=== PATIENT | female | born 1990 | race Caucasian/White ===

== ENCOUNTER 2019-06-02 11:16 | Day surgery (SDC) | payer BC ==
[2019-06-02 11:59] VITALS: BMI 40.1
[2019-06-02 12:38] LABS: #Basophils 0.1 thou/uL (0.0-0.2); #Eosinphils 0.1 thou/uL (0.0-0.7); #Lymphocytes 1.8 thou/uL (1.20-3.40); #Monocytes 0.7 thou/uL (0.11-0.59); #Neutrophils 9.2 thou/uL (1.40-6.50); %Basophils 0.4 % (0.0-1.0); %Lymphocytes 14.8 % (21.0-51.0); %Monocytes 6.2 % (0.0-10.0); %Neutrophils 77.5 % (42.0-75.0); Hemoglobin 12.4 g/dL (12.0-16.0); Mean Corpuscular HGB CONC 34.5 g/dL (32.0-36.0); Mean Corpuscular Hemoglobin 28.6 pg (27.0-31.0); Mean Corpuscular Volume 82.9 fL (78.0-98.0); Mean Platelet Volume 8.4 fL (7.4-10.4); Platelet Count 210 thou/uL (130-400); RBC Distribution Width 13.4 % (11.5-14.5); Red Blood Cell (RBC) Count 4.32 mill/uL (4.20-5.40); White Blood Cell (WBC) Count 11.9 thou/uL (4.8-10.8)
[2019-06-02 12:56] LABS: Bacteria/HPF None Seen HPF (None Seen); Bilirubin Negative (Negative); Blood, Urine Trace (Negative); Clarity Clear (Clear); Glucose, Urine (Dipstick) Normal (Negative); Leukocyte Negative Leu/uL (Negative); Nitrite Negative (Negative); Protein, Urine (Dipstick) Negative (Neg-Trace); RBC/HPF 0-3 HPF (0-3); Squamous Epithelial 0-3 HPF (0-3); Urobilinogen Normal mg/dL (Less than 2); WBC/HPF 0-3 HPF (0-3)
[2019-06-02 13:05] LABS: ALT (SGPT) 14 U/L (8-55); AST (SGOT) 14 U/L (5-34); Albumin 3.3 g/dL (3.5-5.0); Alkaline Phosphatase 143 U/L (40-110); Anion Gap 14 mmol/L (10-20); BUN (Urea Nitrogen) 8 mg/dL (7.0-18.7); Bilirubin, Total 0.2 mg/dL (0.2-1.2); Calc. Creatinine Clearance 211 mL/min (70-130); Calcium 9.4 mg/dL (7.8-10.44); Carbon Dioxide 21 mmol/L (22-29); Chloride 106 mmol/L (98-107); Estimated GFR-MDRD Greater than 90; Glucose 74 mg/dL (70-105); Potassium 4.4 mmol/L (3.5-5.1); Protein, Total 6.3 g/dL (6.0-8.3); Sodium 137 mmol/L (136-145); Uric Acid 4.2 mg/dL (2.6-6.0)
[2019-06-02 13:47] LABS: Protein, Urine Random Quant Less than 10 mg/dL (1-14)
== END 2019-06-02 15:07 | disposition home health service (06) ==
LOC: L&D/OP 11:16
PROVIDERS: ATTEND Obstetrics & Gynecology
DX: O48.0 Post-term pregnancy (principal); Z3A.40 40 weeks gestation of pregnancy; Z88.0 Allergy status to penicillin
CPT/HCPCS: 36415; 80053; 81001; 82570; 84156; 84550; 85025; 99283

== ENCOUNTER 2019-06-03 12:06 | Inpatient (IN) | payer BC ==
[2019-06-03 12:55] VITALS: BMI 40.7
[2019-06-03] MEDS ORDERED: hydrALAZINE 20 MG/ML VIAL SLOW IVP PRN ×2 (13:10→17:18)
[2019-06-03 13:55] LABS: Amnisure Internal Control QC ACCEPTABLE (ACCEPTABLE); Amnisure Test No Membranes Rupture (No Rupture)
--- NOTE | 2019-06-03 14:08 | PRG ---
DATE OF SERVICE: 06/03/2019 PRIMARY OBSTETRIC: . 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 CHIEF COMPLAINT: Fall and leakage of fluid. HISTORY OF PRESENT ILLNESS: The patient is a 28-year-old G1, P0 female with an intrauterine at 40 weeks and 4 days, presenting to Labor and Delivery after falling onto her bottom after slipping on a step. She fell straight down and hit the step. She denies any abdominal trauma or any injury. She reports, at that time, she felt like she had a little bit of leaking of fluid that has not persisted and is not sure for water broke. The patient reports that she is feeling her contractions a little bit. She was seen by Ms. Zuniga yesterday, at which time, her membranes were swept and was reported to be about 2 to 2.5 cm dilated. The patient reports having had intercourse this morning, walking yesterday, and has castor oil at home, all in an attempt to try to put herself in the labor. The patient denies any fever, headache, chest pain, shortness of breath, nausea, or vomiting. She has some loose stools. Denies constipation. Denies any new rashes, hip problems, knee problems, muscle weakness. Denies vaginal bleeding. Denies urinary urgency or frequency. PAST MEDICAL HISTORY: Negative. PAST SURGICAL HISTORY: She had wisdom teeth removed. SOCIAL HISTORY: She reports alcohol use before the . Denies drug or tobacco use. ALLERGIES: PENICILLIN, CODEINE, AND LATEX. MEDICATIONS: vitamins. OBSTETRIC LABORATORY DATA: Blood type is A positive. She is GBS negative. She is rubella immune. Hepatitis B surface antigen nonreactive. RPR nonreactive in the first trimester. Antibody screen is negative. She is group B strep positive. REVIEW OF SYSTEMS: Per HPI. PHYSICAL EXAMINATION: VITAL SIGNS: Blood pressure 129/85, heart rate of 77, respiratory rate of 16, temperature 98.9. GENERAL: She appears to be in no acute distress. She is alert, oriented, cooperative, and pleasant to interact with. HEAD: Normocephalic, atraumatic. LUNGS: Clear to auscultation bilaterally. HEART: Regular rate and rhythm. ABDOMEN: Gravid, soft, nontender. EXTREMITIES: Nontender, nonedematous. CERVICAL: Per nursing staff, is 4, 75, -2 station. heart tracing is showing a possibly baseline in the 150s with [id number] long-term variability and positive 15 x 15 accelerations. ASSESSMENT AND PLAN: The patient is a 28-year-old G1, P0 female with an intrauterine at 40 weeks and 4 days, presenting after a fall onto her bottom. There is no obvious evidence of trauma to her belly or abruption. At this time, fetus does have high baseline with some [id number] variability and prolonged accelerations into the 170s. We will be monitoring the baby to better establish a long-term pattern. It appears that baseline may be coming down into the 150s, but we will continue to monitor. She has no evidence of labor right now, though she is beginning to feel contractions. We have an AmniSure test pending. Clinically, it does not sound like she has rupture of membranes. We will reassess here in a couple of hours with all the information and another cervical check. Hopefully, by then, the heart tracing will be more clear. Job ID: [id number]
[2019-06-03] MEDS ORDERED: Ibuprofen 800 MG TAB PO PRN (17:18)
[2019-06-03] MEDS ORDERED: Ondansetron PF 4 MG/2 ML Vial IVP PRN (17:18)
[2019-06-03] MEDS ORDERED: HYDROcodone/Acetaminophen 5/325 mg Tablet PO PRN ×2 (17:18)
[2019-06-03] MEDS ORDERED: Promethazine HCl 25 MG/ML VIAL IM PRN (17:18)
[2019-06-03] MEDS ORDERED: NS / Oxytocin 40 units/1000ml 1,000 ML IV PRN (17:18)
[2019-06-03] MEDS ORDERED: Lidocaine 1% (PF) 30 ML VIAL SC PRN (17:18)
[2019-06-03] MEDS ORDERED: Methylergonovine 0.2 MG/ML VIAL IM PRN (17:18)
[2019-06-03] MEDS ORDERED: Misoprostol 200 MCG TAB PR PRN (17:18)
[2019-06-03] MEDS ORDERED: NS w/ Oxytocin 10 units 500 ML IV SCH (17:30)
[2019-06-03] MEDS: Lactated Ringer's 1,000 ML IV SCH (17:40)
[2019-06-03 18:06] LABS: Hemoglobin 12.4 g/dL (12.0-16.0); Mean Corpuscular HGB CONC 33.8 g/dL (32.0-36.0); Mean Corpuscular Hemoglobin 28.3 pg (27.0-31.0); Mean Corpuscular Volume 83.6 fL (78.0-98.0); Mean Platelet Volume 8.2 fL (7.4-10.4); Platelet Count 205 thou/uL (130-400); RBC Distribution Width 13.3 % (11.5-14.5); Red Blood Cell (RBC) Count 4.37 mill/uL (4.20-5.40); White Blood Cell (WBC) Count 12.8 thou/uL (4.8-10.8)
[2019-06-03 18:55] LABS: HBSAg Index 0.22 S/CO (0-0.99); Hep B Surf Ag Non-Reactive S/CO (NonReactive); Syphilis Antibody Nonreactive (Nonreactive); Syphilis Antibody Index 0.07 S/CO (<1.00 Non-Reactive)
[2019-06-04] MEDS: CEFAZOLIN 2 GM in Premix Bag 1 BAG IVPB SCH ×2 (01:05→09:02)
[2019-06-04] MEDS: Lactated Ringer's 1,000 ML IV SCH ×2 (01:55→14:54)
[2019-06-04] MEDS ORDERED: Fentanyl 4 mcg/Bup 0.1% Cadd 100 ML ONE (03:58)
[2019-06-04] MEDS ORDERED: Ondansetron PF 4 MG/2 ML Vial IVP PRN (04:35)
[2019-06-04] MEDS ORDERED: Naloxone HCl 0.4 mg/ml Vial IVP PRN ×2 (04:35)
[2019-06-04] MEDS ORDERED: diphenhydrAMINE 50 MG/ML VIAL IVP PRN (04:35)
[2019-06-04] MEDS ORDERED: Lactated Ringer's 500 ML IV PRN (04:35)
[2019-06-04] MEDS ORDERED: Promethazine HCl 25 MG/ML VIAL IM PRN (04:35)
[2019-06-04] MEDS ORDERED: Acetaminophen 325 MG TAB PO PRN (04:35)
[2019-06-04] MEDS ORDERED: ePHEDrine/0.9% NaCl/PF SYRINGE 50 mg/10 ml SLOW IVP PRN (04:35)
[2019-06-04] MEDS ORDERED: Communication Order-Pharmacy FS SCH (04:45)
[2019-06-04] MEDS ORDERED: Fentanyl 4 mcg/Bupivacaine 0.1% Cassette 100 ML EPIDURAL SCH (04:45)
[2019-06-04] MEDS ORDERED: Misoprostol 200 MCG TAB ONE (11:43)
--- NOTE | 2019-06-04 13:13 | PDOC.LDHP ---
Labor and Delivery H&P Chief complaint: contractions, other (fall) HPI: Patient slipped down two stairs and fell on her bottom. She has been observed here in L&D for several hours. She thought her water broke, but it was determined it was not. She is worried about going home, she is worried about baby passing away or something else bad happening. since she is 4cm she would like to stay for an IOL of labor Current gestational age (weeks): 40 (4 days) Dating criteria: last menstrual period Grav: 1 Para: 0 OB History Details: 05/30/19 Current complications: other (GBS+) Current medications: pre- vitamins Previous surgical history: other (wisdom teeth) Allergies/Adverse Reactions: Allergies Allergy/AdvReac Type Severity Reaction Status Date / Time Penicillins Allergy Unknown Rash Verified 06/02/19 13:13 Social history: none - Physical Exam Vital signs reviewed and normal: yes General: breathing through contractions Heart: RRR Lungs: nonlabored breathing Abdomen: gravid Extremeties: trace edema FHT: category 1 - Vaginal Exam cm dilated: 4 Effacement: 75% Station: -2 - OB Labs Blood type: A RH: positive Antibody Screen: negative HIV: negative RPR: negative HEPSAg: negative 1 hour GCT: negative GBS: positive Urine drug screen: negative Rubella: immune - Assessment L&D Assessment: term patient in labor - Plan Plan: admit to L&D, labor augmentation if indicated, GBS antibiotic prophylaxis
--- NOTE | 2019-06-04 13:24 | PDOC.OPDEL ---
OB Operative/Delivery Note Delivery Dr/Surgeon: Catalina Tidwell Pre-Delivery Diagnosis: active labor, other (40 week 4 days) Anesthesia: epidural - Findings A Sex: female Weight: 8 lb 9 oz - 1 min: 9 - 5 min: 10 - Additional Findings/Plan Placenta delivered: spontaneous Repaired Obstetrical Laceration: 2nd degree Estimated blood loss: 1260 QBL Compilations/Other Findings: PPH, resolved with cytotec 800mcg MT, methergine 0.25 IM, and Pitocin small piece of retained placenta which was manually removed Post delivery plan: routine recovery
[2019-06-04] MEDS ORDERED: HYDROcodone/Acetaminophen 5/325 mg Tablet PO PRN ×2 (14:49)
[2019-06-04] MEDS ORDERED: Milk Of Magnesia 30 ML UDCUP PO PRN (14:49)
[2019-06-04] MEDS ORDERED: NS / Oxytocin 40 units/1000ml 1,000 ML IV SCH (14:49)
[2019-06-04] MEDS ORDERED: Bisacodyl 10 MG SUPP PR PRN (14:49)
[2019-06-04] MEDS ORDERED: Methylergonovine 0.2 MG/ML VIAL IM PRN (14:49)
[2019-06-04] MEDS ORDERED: Adacel (T-DAP) 0.5 ML SYRINGE IM ONE (14:49)
[2019-06-04] MEDS ORDERED: hydrALAZINE 20 MG/ML VIAL SLOW IVP PRN (14:49)
[2019-06-04] MEDS ORDERED: Benzocaine-Menthol 82.5 ML CAN TOP PRN (14:49)
[2019-06-04] MEDS: Ibuprofen 800 MG TAB PO SCH (15:21)
[2019-06-04] MEDS: Ferrous Sulfate 325 MG TAB PO SCH (17:10)
[2019-06-05] MEDS: Ibuprofen 800 MG TAB PO SCH ×4 (00:52→23:38)
[2019-06-05] MEDS: Docusate Calcium (SURFAK) 240 MG CAP PO SCH ×3 (00:52→21:25)
--- NOTE | 2019-06-05 05:50 | PDOC.PP ---
Post Progress Note Post Day #: PPD1 Subjective: Resting, no complaints PO intake tolerated: yes Flatus: yes Ambulation: yes Vital Signs (12 hours) Temp Pulse Resp BP Pulse Ox 06/05/19 04:50 98.6 F 74 18 118/65 06/05/19 00:45 98.6 F 97 18 112/63 06/04/19 20:25 98.2 F 78 18 118/58 L 97 Weight Weight 104.326 kg - Physical Examination General: NAD Respiratory: non-labored breathing Abdominal: no distention Neurological: no gross focal deficits Psychiatric: normal affect Result Diagrams: 06/03/19 17:57 Additional Labs: Post Labs Blood Type A POSITIVE 06/03/19 18:17 Hep Bs Antigen Non-Reactive S/CO (NonReactive) 06/03/19 17:57 - Assessment/Plan Doing well s/p , bleeding resolved post Cytotec after delivery. Check CBC this AM. Anticipate home in AM.
[2019-06-05 08:34] LABS: #Eosinphils 0.2 thou/uL (0.0-0.7); #Lymphocytes 2.1 thou/uL (1.20-3.40); #Neutrophils 9.1 thou/uL (1.40-6.50); %Basophils 0.3 % (0.0-1.0); %Eosinophils 1.2 % (0.0-10.0); %Lymphocytes 17.2 % (21.0-51.0); %Monocytes 7.7 % (0.0-10.0); %Neutrophils 73.7 % (42.0-75.0); Hemoglobin 9.1 g/dL (12.0-16.0); Mean Corpuscular HGB CONC 33.6 g/dL (32.0-36.0); Mean Corpuscular Hemoglobin 28.7 pg (27.0-31.0); Mean Corpuscular Volume 85.6 fL (78.0-98.0); Mean Platelet Volume 8.1 fL (7.4-10.4); Platelet Count 165 thou/uL (130-400); RBC Distribution Width 13.3 % (11.5-14.5); Red Blood Cell (RBC) Count 3.17 mill/uL (4.20-5.40); White Blood Cell (WBC) Count 12.4 thou/uL (4.8-10.8)
[2019-06-05] MEDS: Prenatal Vitamin 1 TAB PO SCH (09:14)
[2019-06-05] MEDS: Ferrous Sulfate 325 MG TAB PO SCH ×2 (09:14→16:35)
[2019-06-06 00:20] VITALS: BP 121/69
[2019-06-06] MEDS: Docusate Calcium (SURFAK) 240 MG CAP PO SCH (07:55)
[2019-06-06] MEDS: Prenatal Vitamin 1 TAB PO SCH (07:55)
[2019-06-06] MEDS: Ibuprofen 800 MG TAB PO SCH ×2 (07:55→15:40)
[2019-06-06 08:02] VITALS: TEMP 98
[2019-06-06] MEDS: Ferrous Sulfate 325 MG TAB PO SCH (09:25)
== END 2019-06-06 17:19 | disposition home or self-care (01) | DRG 806 ==
LOC: L&D/OP 12:06 → L&D 19:39 → 3SW 06-04 14:49
PROVIDERS: ADMIT Obstetrics & Gynecology; ATTEND Obstetrics & Gynecology
PROC: 10907ZC Drainage of Amniotic Fluid, Therapeutic from Products of Conception, Via Natural or Artificial Opening (ICD-10-PCS; principal; 2019-06-03)
PROC: 10E0XZZ Delivery of Products of Conception, External Approach (ICD-10-PCS; 2019-06-03)
PROC: 0KQM0ZZ Repair Perineum Muscle, Open Approach (ICD-10-PCS; 2019-06-03)
PROC: 3E033VJ Introduction of Other Hormone into Peripheral Vein, Percutaneous Approach (ICD-10-PCS; 2019-06-03)
DX: O76 Abnormality in fetal heart rate and rhythm complicating labor and delivery (principal); O72.1 Other immediate postpartum hemorrhage; Z37.0 Single live birth; O99.824 Streptococcus B carrier state complicating childbirth; O70.1 Second degree perineal laceration during delivery; Z3A.40 40 weeks gestation of pregnancy; O9A.22 Injury, poisoning and certain other consequences of external causes complicating childbirth; O48.0 Post-term pregnancy
CPT/HCPCS: 36415; 51702; 80053; 81001; 82570; 84112; 84156; 84550; 85025; 85027; 86780; 86850; 86900; 86901; 87340; 99283; 99285; J0690; J2210; J2590